=== PATIENT | male | born 2005 | race Caucasian/White ===

== ENCOUNTER 2025-03-05 12:03 | Emergency (ER) | payer OTHER, SELFPAY ==
[2025-03-05 12:09] VITALS: BP 129/79; PULSE 74; TEMP 36.8; O2SAT 97; BMI 21.3
--- NOTE | 2025-03-05 12:11 | XR_ITS ---
[facility] [place] [id number] Patient Name: MIRNA CORNELL MRN: [id number] date: 2005 Sex: M Assigned Patient Location: ED.MAIN Current Patient Location: ED.MAIN Accession/Order Number: [id number] Exam Date: 03/05/2025 12:42 Report Date: 03/05/2025 12:43 At the request of: JUANA SHANNON MD Procedure: XR ankle LT min 3V LEFT ANKLE - 3 views CLINICAL HISTORY: Twisted COMPARISON: None FINDINGS: Moderate lateral malleolar soft tissue swelling. No fracture or dislocation. There is a joint effusion identified. XR/XR ankle LT min 3V IMPRESSION: SOFT TISSUE SWELLING AND JOINT EFFUSION. OTHERWISE NEGATIVE ACUTE ONSET MILD. Impression dictated by: Chele Torres M.D. 03/05/2025 12:43 PM Dictation Location: [place] [address] Electronically authenticated by: [id number] Y Date: 03/05/2025 12:43
--- NOTE | 2025-03-05 12:17 | ED.GENADUL1 ---
HPI HPI - General Adult General Chief complaint: Extremity Injury, Lower Stated complaint: LOWER EXTREMITY INJURY - [facility] Time Seen by Provider: 03/05/25 12:10 Source: patient Mode of arrival: walk-in Limitations: no limitations History of Present Illness HPI narrative: 19-year-old male presents to the emergency department for left ankle pain and swelling. He twisted it at work yesterday and he points to the lateral malleolus to indicate area of pain. No other injury sustained. No pain in the foot. He has been able to ambulate. The pain is moderate. Related Data Previous Rx's ?Medication ?Instructions ?Recorded ibuprofen 800 mg tablet 800 mg PO Q8H PRN pain #20 tabs 03/05/25 Allergies Allergy/AdvReac Type Severity Reaction Status Date / Time No Known Drug Allergies Allergy Verified 03/05/25 12:09 Opioid HPI Opioid Management Most Recent Opioid Data: Last Pain Scale 8 Today, 12:13 Review of Systems ROS Narrative A ten point review of systems is negative except as noted above. PFSH PFSH Social History Little interest or pleasure in doing things: not at all Feeling down, depressed, or hopeless: not at all Exam Narrative Exam Narrative: Nurses note and vital signs reviewed and patient is not hypoxic. General: The patient appears well and in no apparent distress. Patient is resting comfortably on cart. Skin: Warm, dry, no pallor noted. There is no rash noted. Head: Normocephalic, atraumatic Eye: Normal conjunctiva, no drainage Ears, Nose, Mouth, and Throat: oral mucosa is moist. Nares patent. Cardiovascular: Regular Rate and Rhythm Respiratory: Patient is in no distress, no accessory muscle use Back: non-tender GI: Soft and nontender Musculoskeletal: The left foot has no palpable tenderness including the fifth metatarsal area. He has some swelling and mild tenderness over the lateral malleolus. Skin intact. Knee nontender. Neurological: A&O, normal speech Psychiatric: Cooperative Constitutional Vital Signs, click to edit/add: Last Vital Signs Temp 98.3 F 03/05/25 12:09 Pulse 74 03/05/25 12:09 Resp 16 03/05/25 12:09 BP 129/79 03/05/25 12:09 Pulse Ox 97 03/05/25 12:09 O2 Del Method Room Air 03/05/25 12:09 Course Vital Signs Vital signs: Vital Signs Temperature 98.3 F 03/05/25 12:09 Pulse Rate 74 03/05/25 12:09 Respiratory Rate 16 03/05/25 12:09 Blood Pressure 129/79 03/05/25 12:09 Pulse Oximetry 97 03/05/25 12:09 Oxygen Delivery Method Room Air 03/05/25 12:09 Temperature 98.3 F 03/05/25 12:09 Pulse Rate 74 03/05/25 12:09 Respiratory Rate 16 03/05/25 12:09 Blood Pressure 129/79 03/05/25 12:09 Pulse Oximetry 97 03/05/25 12:09 Oxygen Delivery Method Room Air 03/05/25 12:09 Medical Decision Making MDM Narrative Medical decision making narrative: X-ray per radiologist shows no fracture. Arthur wrap applied, application checked by me and found to be appropriate, he is neurovascularly intact. He is also placed on crutches and prescribed ibuprofen. Treatment diagnosis and follow-up were discussed with the patient. He was given a note to be off of work. Differential Diagnosis Differential Diagnosis: Ankle sprain, ankle fracture Imaging Data X-ray left ankle: Radiologist's impression: ITS Impressions Ankle X-Ray 03/05/25 12:11 IMPRESSION: SOFT TISSUE SWELLING AND JOINT EFFUSION. OTHERWISE NEGATIVE ACUTE ONSET MILD. Impression dictated by: hCele Torres M.D. 03/05/2025 12:43 PM Dictation Location: [place] [address] Electronically authenticated by: [id number] Y Date: 03/05/2025 12:43 Discharge Plan Discharge Chief Complaint: Extremity Injury, Lower Clinical Impression: Left ankle sprain Patient Disposition: Home, Self-Care Time of Disposition Decision: 12:49 Condition: Good Mode of Transportation: Private Vehicle Prescriptions / Home Meds: New ibuprofen 800 mg tablet 800 mg PO Q8H PRN (Reason: pain) Qty: 20 0RF Print Language: Serbian Instructions: Ankle Sprain (ED) Referrals: Angelica Perez NP [Primary Care Provider] - 1 week
== END 2025-03-05 13:03 | disposition home or self-care (01) ==
PROVIDERS: Emergency Provider Emergency Medicine; PCP Nurse Practitioner Family
DX: S93.402A Sprain of unspecified ligament of left ankle, initial encounter (principal); X50.1XXA Overexertion from prolonged static or awkward postures, initial encounter
CPT/HCPCS: 73610; 99283